=== PATIENT | female | born 1975 | race Caucasian/White ===

== ENCOUNTER 2022-09-09 16:48 | Emergency (ER) | payer BC ==
[~2022-09-09] VITALS: Ht 160 cm; Wt 64.4 kg
--- NOTE | 2022-09-09 17:01 | NUR ---
patient bibra c/o chest tightness. on room air, breathing evenly and unlabored. Kept comfortable, will continue to monitor accordingly.
[2022-09-09] MEDS ORDERED: IV NS 0.9% 1,000 ML IV ONE (17:30)
[2022-09-09 17:41] LABS: BASOPHILS # (AUTO) 0.1 K/uL (0.0-0.2); BASOPHILS % (AUTO) 0.8 % (0.0-2.0); EOSINOPHILS % (AUTO) 1.1 % (0.0-6.0); HEMATOCRIT 36 % (33-45); HEMOGLOBIN 11.7 g/dL (11.5-14.8); LYMPHOCYTES # (AUTO) 0.8 K/uL (0.8-4.8); LYMPHOCYTES % (AUTO) 10.8 % (20.0-44.0); MEAN CORPUSCULAR HGB CONC 33 g/dl (31.0-36.0); MEAN CORPUSCULAR VOLUME 88 fL (82-100); MONOCYTES # (AUTO) 0.6 K/uL (0.1-1.30); MONOCYTES % (AUTO) 7.8 % (2.0-12.0); NEUTROPHILS # (AUTO) 5.8 K/uL (1.8-8.9); NEUTROPHILS % (AUTO) 79.5 % (43.0-81.0); PLATELET COUNT (AUTO) 309 K/uL (150-450); RED BLOOD CELL COUNT(AUTO) 4.06 MIL/uL (4.0-5.2); WHITE BLOOD COUNT (AUTO) 7.3 K/uL (4.3-11.0)
[2022-09-09 17:51] LABS: CALCIUM, SERUM 8.7 mg/dL (8.5-10.1); CARBON DIOXIDE 26 mmol/L (21-32); CHLORIDE 110 mmol/L (98-107); CREATININE 0.7 mg/dL (0.6-1.3); GLUCOSE 117 mg/dL (74-106); POTASSIUM 3.3 mmol/L (3.5-5.1); SODIUM SERUM 144 mmol/L (136-145); UREA NITROGEN, BLOOD 12 mg/dL (7-18)
[2022-09-09 17:57] LABS: ALANINE AMINOTRANSFERASE 26 U/L (12-78); ALBUMIN 3.6 g/dL (3.4-5.0); ALKALINE PHOSPHATASE 56 U/L (46-116); ASPARTATE AMINOTRANSFERASE 15 U/L (15-37); BILIRUBIN,DIRECT 0.1 mg/dL (0.0-0.2); BILIRUBIN,TOTAL 0.2 mg/dL (0.2-1.0); TOTAL PROTEIN, SERUM 6.9 g/dL (6.4-8.2)
[2022-09-09] MEDS ORDERED: POTASSIUM CHLORIDE 20 MEQ TAB.PRT.SR PO ONE ×2 (18:30)
--- NOTE | 2022-09-09 19:29 | NUR ---
LAB AT BEDSIDE FOR REPEAT TROPONIN DRAW
[2022-09-09 20:19] VITALS: BP 118/76
--- NOTE | 2022-09-09 20:23 | NUR ---
PT PROVIDED WITH DISCHARGE SUMMARY AND PT EDUCATION. PT VERBALIZED UNDERSTANDING. IV RAC 18G DC'D. PT LEFT FACILITY IN STABLE CONDITION.
== END 2022-09-09 20:24 | disposition home or self-care (01) ==
LOC: ER 16:50
DX: R00.2 Palpitations (principal)
CPT/HCPCS: 99285; 96360; 71045; 93005; 85025; 80048; 80076; 85378; 36415; 84443; 84484 ×2; J7030